=== PATIENT | female | born 1995 ===

== ENCOUNTER 2020-09-29 15:14 | Emergency (ER) | payer MEDICAID ==
[2020-09-29 16:57] VITALS: BP 113/57
--- NOTE | 2020-09-29 17:35 | XRay Report ---
RIGHT HAND 2 VIEW(S) INDICATION / CLINICAL INFORMATION: right hand crushed COMPARISON: None available. FINDINGS: BONES / JOINT(S): Displaced and angulated fracture noted of the distal shaft fifth metacarpal. No dis location. No significant arthritis. SOFT TISSUES: Soft tissue swelling and edema is noted around the fracture site. ADDITIONAL FINDINGS: None. Signer Name: Cody Peterson MD Signed: 09/29/2020 5:30 PM Workstation Name: [id number]
--- NOTE | 2020-09-29 17:37 | XRay Report ---
RIGHT WRIST 3 VIEW(S) INDICATION / CLINICAL INFORMATION: right wrist pain COMPARISON: Prior radiograph of the right hand performed earlier today. FINDINGS: BONES / JOINT(S): Displaced and angled fracture of the distal fifth metacarpal shaft. No dislocation No significant arthritis. The carpal arcs are intact. SOFT TISSUES: Soft tissue swelling surrounds fracture site. ADDITIONAL FINDINGS: None. Signer Name: Cody Peterson MD Signed: 09/29/2020 5:33 PM Workstation Name: [id number]
[2020-09-29] MEDS ORDERED: HYDROcodone/ACETAMINOPHEN 5-325 MG TAB PO ONE (17:47)
--- NOTE | 2020-09-29 17:48 | Emergency Department Report ---
ED Upper Extremity Inj HPI - General Chief Complaint: Extremity Injury, Upper Stated Complaint: RT HAND INJURY Time Seen by Provider: 09/29/20 16:56 Source: patient Mode of arrival: Ambulatory Limitations: No Limitations - History of Present Illness Initial Comments: Patient is a 25-year-old female presents emergency room complaints of a right hand injury that occurred just prior to arrival. Patient states that she was using a cierra to move some furniture. She states that they were going through a doorway when her hand got trapped between the cierra and the door frame. She has abrasions to her hand. She has associated hand pain and swelling. She denies any numbness or weakness. She is right-hand dominant. She denies ever injuring herself in the past. No past medical history. All his medications. - Related Data Previous Rx's Medication Instructions Recorded Last Taken Type HYDROcodone/APAP 5-325 [[place] 1 each PO Q6HR PRN #12 tablet 09/29/20 Unknown Rx 5/325] Ibuprofen [Motrin 600 MG tab] 600 mg PO Q8H PRN #20 tablet 09/29/20 Unknown Rx Allergies Allergy/AdvReac Type Severity Reaction Status Date / Time No Known Allergies Allergy Unverified 09/29/20 16:57 ED Review of Systems ROS: Stated complaint: RT HAND INJURY Other details as noted in HPI Comment: All other systems reviewed and negative ED Past Medical Hx - Past Medical History Previous Medical History?: No - Surgical History Past Surgical History?: No - Medications Home Medications: Home Medications Medication Instructions Recorded Confirmed Last Taken Type HYDROcodone/APAP 5-325 [[place] 1 each PO Q6HR PRN #12 tablet 09/29/20 Unknown Rx 5/325] Ibuprofen [Motrin 600 MG tab] 600 mg PO Q8H PRN #20 tablet 09/29/20 Unknown Rx ED Physical Exam - General Limitations: No Limitations General appearance: alert, in no apparent distress - Head Head exam: Present: atraumatic, normocephalic - Eye Eye exam: Present: normal appearance - ENT ENT exam: Present: mucous membranes moist - Respiratory Respiratory exam: Absent: respiratory distress, accessory muscle use - Extremities Exam Extremities exam: Present: other (ttp, edema, and ecchymosis to the right me dial, dorsal hand, two small abrasions present, no active bleeding, decreased ROM secondary to pain, no wrist ttp or snuffbox ttp, neurovascularly intact) - Neurological Exam Neurological exam: Present: alert, oriented X3 - Psychiatric Psychiatric exam: Present: normal affect, normal mood - Skin Skin exam: Present: warm, dry ED Course Vital Signs 09/29/20 16:55 Temperature 99.3 F Pulse Rate 82 Respiratory 18 Rate Blood Pressure 113/57 [Right] O2 Sat by Pulse 99 Oximetry ED Medical Decision Making - Radiology Data Radiology results: report reviewed, image reviewed Ordering Physician: BIGG AMARO Date of Service: 09/29/20 Procedure(s): XR wrist 3+V RT Accession Number(s): [id number] cc: BIGG AMARO Fluoro Time In Minutes: RIGHT WRIST 3 VIEW(S) INDICATION / CLINICAL INFORMATION: right wrist pain COMPARISON: Prior radiograph of the right hand performed earlier today. FINDINGS: BONES / JOINT(S): Displaced and angled fracture of the distal fifth metacarpal shaft. No dislocation No significant arthritis. The carpal arcs are intact. SOFT TISSUES: Soft tissue swelling surrounds fracture site. ADDITIONAL FINDINGS: None. Signer Name: Cody Wallace MD Signed: 09/29/2020 5:33 PM Workstation Name: [id number] Transcribed By: Dictated By: CODY WALLACE Electronically Authenticated By: CODY WALLACE Signed Date/Time: 09/29/201732 DD/ 29 TD/TT: Print Ordering Physician: BIGG AMARO Date of Service: 09/29/20 Procedure(s): XR hand 2V RT Accession Number(s): [id number] cc: BIGG AMARO Fluoro Time In Minutes: RIGHT HAND 2 VIEW(S) INDICATION / CLINICAL INFORMATION: right hand crushed COMPARISON: None available. FINDINGS: BONES / JOINT(S): Displaced and angulated fracture noted of the distal shaft fifth metacarpal. No dislocation. No significant arthritis. SOFT TISSUES: Soft tissue swelling and edema is noted around the fracture site. ADDITIONAL FINDINGS: None. Signer Name: Cody Wallace MD Signed: 09/29/2020 5:30 PM Workstation Name: [id number] Transcribed By: Dictated By: CODY WALLACE Electronically Authenticated By: CODY WALLACE Signed Date/Time: 09/29/201729 DD/ 28 TD/TT: Print - Medical Decision Making Patient is a 25-year-old female presents emergency room complaints of a right hand injury that occurred just prior to arrival. Patient states that she was using a cierra to move some furniture. She states that they were going through a doorway when her hand got trapped between the cierra and the door frame. She has abrasions to her hand. She has associated hand pain and swelling. She denies any numbness or weakness. She is right-hand dominant. She denies ever injuring herself in the past. No past medical history. All his medications. Vitals are normal. On exam:ttp, edema, and ecchymosis to the right medial, dorsal hand, two small abrasions present, no active bleeding, decreased ROM secondary to pain, no wrist ttp or snuffbox ttp, neurovascularly intact. Ordered patient to have [place] and Tdap. X-ray right hand BONES / JOINT(S): Displaced and angulated fracture noted of the distal shaft fifth metacarpal. No dislocation. No significant arthritis. SOFT TISSUES: Soft tissue swelling and edema is noted around the fracture site. ADDITIONAL FINDINGS: None. Discussed case with Dr. Lane, ER attending who advised to manipulate and place in splint. I held physical traction to keep metacarpal and normal anatomical alignment while banding machine operator placed ulnar gutter splint, patient remained neurovascularly intact. Discussed the importance of orthopedic follow-up. Patient given prescription for [place] and ibuprofen. Advised patient Please take medication as prescribed as needed. Do not drive or operate machinery when taking severe pain medication. Follow-up with orthopedic doctor. return to emergency room for new or symptoms. Critical care attestation.: If time is entered above; I have spent that time in minutes in the direct care of this critically ill patient, excluding procedure time. ED Disposition Clinical Impression: Closed fracture of 5th metacarpal Qualifiers: Encounter type: initial encounter Metacarpal location: shaft Fracture alignment: displaced Laterality: right Qualified Code(s): S62.326A - Displaced fracture of shaft of fifth metacarpal bone, right hand, initial encounter for closed fracture Disposition: DC-01 TO HOME OR SELFCARE Is pt being admited?: No Does the pt Need Aspirin: No Condition: Stable Instructions: Boxer's Fracture Additional Instructions: Please take medication as prescribed as needed. Do not drive or operate [place] when taking severe pain medication. Follow-up with orthopedic doctor. return to emergency room for new or symptoms. Prescriptions: Ibuprofen [Motrin 600 MG tab] 600 mg PO Q8H PRN #20 tablet PRN Reason: Pain HYDROcodone/APAP 5-325 [[place] 5/325] 1 each PO Q6HR PRN #12 tablet PRN Reason: Pain , Severe (7-10) Referrals: ISRRAEL RUEDA MD [Staff Physician] - 2-3 Days [facility] [Provider Group] - 2-3 Days Time of Disposition: 18:17 Print Language: YAKUT
[2020-09-29] MEDS ORDERED: TETANUS,DIPH,PERTUSS(ACELL) VACCINE 0.5 ML SYRINGE IM ONE (17:50)
== END 2020-09-29 18:20 | disposition home or self-care (01) ==
LOC: ED 15:14
DX: S62.326A Displaced fracture of shaft of fifth metacarpal bone, right hand, initial encounter for closed fracture (principal); Z79.1 Long term (current) use of non-steroidal anti-inflammatories (NSAID); Z79.899 Other long term (current) drug therapy; X58.XXXA Exposure to other specified factors, initial encounter; Y93.89 Activity, other specified; Y92.89 Other specified places as the place of occurrence of the external cause; Y99.8 Other external cause status
CPT/HCPCS: 90715